=== PATIENT | female | born 1975 | race Caucasian/White ===

== ENCOUNTER → 2020-06-30 | Outpatient (CLI) | payer OTHER | LOC: HEART 5 06-27 13:30 | DX: I49.3 Ventricular premature depolarization (principal) ==

== ENCOUNTER → 2020-08-24 | Outpatient (CLI) | payer OTHER | LOC: HEART 5 08-01 09:00 | DX: R94.31 Abnormal electrocardiogram [ECG] [EKG] (principal); I08.1 Rheumatic disorders of both mitral and tricuspid valves | CPT/HCPCS: 93306 ==

== ENCOUNTER → 2021-02-22 | Outpatient (CLI) | payer OTHER | LOC: KOH-I 02-21 14:00 | DX: E04.1 Nontoxic single thyroid nodule (principal) | CPT/HCPCS: 76536 ==

== ENCOUNTER 2021-06-01 09:53 | Emergency (ER) | payer OTHER ==
[~2021-06-01] VITALS: Ht 170.2 cm; Wt 104.3 kg
== END 2021-06-01 13:05 | disposition home or self-care (01) ==
LOC: ER1 09:53
DX: U07.1 COVID-19 (principal); Z23 Encounter for immunization
CPT/HCPCS: 99283; M0245

== ENCOUNTER → 2021-08-03 | Outpatient (CLI) | payer OTHER | LOC: HEART 5 14:59 | DX: R00.1 Bradycardia, unspecified (principal); I49.3 Ventricular premature depolarization ==